=== PATIENT | female | born 1990 | race Two or more races ===

== ENCOUNTER → 2020-03-31 | Emergency (ER) | payer OTHER ==
[~2020-03-31] VITALS: Ht 172.7 cm; Wt 102.1 kg
[~2020-03-31] MED LIST: ALLEGRA; AMBIEN5 MG; AMITRIPTYLINE H75 MG; FIORICET TABLET1 TAB PO; PRENATABS FA T1 EACH; PROVENTIL; SYMBICORT 16010.2 GM; TOPAMAX50 MG PO
== END | disposition home or self-care (01) ==
LOC: ER 12:04
DX: O92.6 Galactorrhea (principal); O91.011 Infection of nipple associated with pregnancy, first trimester; B95.4 Other streptococcus as the cause of diseases classified elsewhere; B96.89 Other specified bacterial agents as the cause of diseases classified elsewhere; Z3A.12 12 weeks gestation of pregnancy

== ENCOUNTER → 2020-04-22 | Outpatient (CLI) | payer OTHER ==
[~2020-04-22] MED LIST changes: +KEFLEX500 MG PO; +MAXALT10 MG
== END | disposition home or self-care (01) ==
LOC: PRENATAL 15:23
PROVIDERS: ATTEND Obstetrics & Gynecology Maternal & Fetal Medicine
DX: O26.842 Uterine size-date discrepancy, second trimester (principal); O99.891 Other specified diseases and conditions complicating pregnancy; Z36.89 Encounter for other specified antenatal screening; Z3A.16 16 weeks gestation of pregnancy

== ENCOUNTER → 2020-04-23 | Emergency (ER) | payer OTHER ==
[~2020-04-23] VITALS: Ht 172.7 cm; Wt 102.5 kg
== END | disposition home or self-care (01) ==
LOC: ER 22:02
DX: O20.0 Threatened abortion (principal); O23.32 Infections of other parts of urinary tract in pregnancy, second trimester; Z3A.16 16 weeks gestation of pregnancy

== ENCOUNTER 2020-04-29 14:28 | Emergency (ER) | payer OTHER ==
[~2020-04-29] VITALS: Ht 172.7 cm; Wt 103.9 kg
== END 2020-04-29 18:46 | disposition home or self-care (01) ==
LOC: ER 14:28
DX: O26.852 Spotting complicating pregnancy, second trimester (principal); O36.80X0 Pregnancy with inconclusive fetal viability, not applicable or unspecified; Z3A.16 16 weeks gestation of pregnancy

== ENCOUNTER → 2020-05-27 | Outpatient (CLI) | payer OTHER | END | disposition home or self-care (01) | LOC: PRENATAL 13:00 | PROVIDERS: ATTEND Obstetrics & Gynecology Maternal & Fetal Medicine | DX: O35.0XX1 Maternal care for (suspected) central nervous system malformation in fetus, fetus 1 (principal); O35.3XX1 Maternal care for (suspected) damage to fetus from viral disease in mother, fetus 1; O98.512 Other viral diseases complicating pregnancy, second trimester; O99.891 Other specified diseases and conditions complicating pregnancy; Z36.89 Encounter for other specified antenatal screening; Z3A.21 21 weeks gestation of pregnancy ==

== ENCOUNTER 2020-07-15 13:17 | Outpatient (CLI) | payer OTHER | END 2020-07-15 19:07 | disposition home or self-care (01) | LOC: OBS/DEL 13:17 | PROVIDERS: ATTEND Obstetrics & Gynecology | DX: O26.843 Uterine size-date discrepancy, third trimester (principal); O26.893 Other specified pregnancy related conditions, third trimester; O26.853 Spotting complicating pregnancy, third trimester; R10.2 Pelvic and perineal pain ==

== ENCOUNTER → 2020-08-29 | Emergency (ER) | payer OTHER ==
[~2020-08-29] VITALS: Ht 172.7 cm; Wt 112.9 kg
[~2020-08-29] MED LIST changes: +PEPCID AC10 MG; +PRILOSEC OTC20 MG; +SINGULAIR5 MG
== END | disposition home or self-care (01) ==
LOC: ER 13:19 → CPU-OBS 15:13 → ER 15:13
DX: O26.893 Other specified pregnancy related conditions, third trimester (principal); R07.89 Other chest pain; Z3A.34 34 weeks gestation of pregnancy; Z03.818 Encounter for observation for suspected exposure to other biological agents ruled out

== ENCOUNTER 2020-10-02 06:50 | Inpatient (IN) | payer OTHER ==
[~2020-10-02] VITALS: Ht 172.7 cm; Wt 3.2 kg
[2020-10-03] MEDS ORDERED: AMITRIPTYLINE H75 MG (16:25)
[2020-10-03] MEDS ORDERED: MONTELUKAST SOD10 MG (16:26)
[2020-10-03] MEDS ORDERED: RIZATRIPTAN10 MG (16:26)
== END 2020-10-10 16:27 | disposition home or self-care (01) | DRG 787 ==
LOC: LDR 06:50 → OB/GYN 20:01
PROVIDERS: ADMIT Obstetrics & Gynecology; ATTEND Obstetrics & Gynecology
PROC: 3E033VJ Introduction of Other Hormone into Peripheral Vein, Percutaneous Approach (ICD-10-PCS; 2020-10-02)
PROC: 4A1HXFZ Monitoring of Products of Conception, Cardiac Rhythm, External Approach (ICD-10-PCS; 2020-10-02)
PROC: 10D00Z1 Extraction of Products of Conception, Low, Open Approach (ICD-10-PCS; principal; 2020-10-02 13:00)
PROC: B24BYZZ Ultrasonography of Heart with Aorta using Other Contrast (ICD-10-PCS; 2020-10-06)
DX: O62.1 Secondary uterine inertia (principal); O86.12 Endometritis following delivery; O86.20 Urinary tract infection following delivery, unspecified; Z16.12 Extended spectrum beta lactamase (ESBL) resistance; B96.20 Unspecified Escherichia coli [E. coli] as the cause of diseases classified elsewhere; R78.81 Bacteremia; O42.02 Full-term premature rupture of membranes, onset of labor within 24 hours of rupture; O99.824 Streptococcus B carrier state complicating childbirth; Z3A.39 39 weeks gestation of pregnancy; Z37.0 Single live birth; Z20.822 Contact with and (suspected) exposure to COVID-19

== ENCOUNTER 2021-02-08 11:24 | Outpatient (CLI) | payer OTHER ==
[~2021-02-08 11:24] MED LIST changes: +MONTELUKAST SOD10 MG; +RIZATRIPTAN10 MG
== END 2021-02-08 23:00 | disposition home or self-care (01) ==
LOC: LAB 11:24
DX: Z20.818 Contact with and (suspected) exposure to other bacterial communicable diseases (principal); Z20.828 Contact with and (suspected) exposure to other viral communicable diseases

== ENCOUNTER 2022-11-20 14:26 | Emergency (ER) | payer OTHER ==
[~2022-11-20] VITALS: Ht 170.2 cm; Wt 113.4 kg
[2022-11-20] MEDS ORDERED: PROAIR RESPICL90 MCG (15:31)
== END 2022-11-20 19:55 | disposition home or self-care (01) ==
LOC: ER 14:26
DX: O99.511 Diseases of the respiratory system complicating pregnancy, first trimester (principal); Z3A.08 8 weeks gestation of pregnancy; J45.909 Unspecified asthma, uncomplicated; Z20.822 Contact with and (suspected) exposure to COVID-19

== ENCOUNTER 2023-01-03 13:21 | Outpatient (CLI) | payer OTHER ==
[~2023-01-03 13:21] MED LIST changes: +PROAIR RESPICL90 MCG
== END 2023-01-03 16:45 | disposition home or self-care (01) ==
LOC: PRENATAL 13:21
PROVIDERS: ATTEND Obstetrics & Gynecology Maternal & Fetal Medicine
DX: O36.80X0 Pregnancy with inconclusive fetal viability, not applicable or unspecified (principal); Z36.9 Encounter for antenatal screening, unspecified; O34.219 Maternal care for unspecified type scar from previous cesarean delivery; O99.341 Other mental disorders complicating pregnancy, first trimester; Z3A.14 14 weeks gestation of pregnancy

== ENCOUNTER → 2023-01-23 | Emergency (ER) | payer OTHER ==
[~2023-01-23] VITALS: Ht 170.2 cm; Wt 108.4 kg
[~2023-01-23] MED LIST changes: +PRENA1 TRUE CO1 EACH PO
== END | disposition home or self-care (01) ==
LOC: ER 09:30
PROVIDERS: Emergency Medicine
DX: O26.891 Other specified pregnancy related conditions, first trimester (principal); Z3A.17 17 weeks gestation of pregnancy; R10.2 Pelvic and perineal pain; Z88.6 Allergy status to analgesic agent; Z91.013 Allergy to seafood; Z88.8 Allergy status to other drugs, medicaments and biological substances; Z91.018 Allergy to other foods

== ENCOUNTER 2023-02-15 13:00 | Outpatient (CLI) | payer OTHER | END 2023-02-15 15:00 | disposition home or self-care (01) | LOC: PRENATAL 13:00 | PROVIDERS: ATTEND Obstetrics & Gynecology Maternal & Fetal Medicine | DX: O35.9XX0 Maternal care for (suspected) fetal abnormality and damage, unspecified, not applicable or unspecified (principal); O35.3XX0 Maternal care for (suspected) damage to fetus from viral disease in mother, not applicable or unspecified; O44.00 Complete placenta previa NOS or without hemorrhage, unspecified trimester; O99.210 Obesity complicating pregnancy, unspecified trimester; O34.219 Maternal care for unspecified type scar from previous cesarean delivery; Z3A.20 20 weeks gestation of pregnancy ==

== ENCOUNTER 2023-03-15 18:02 | Outpatient (CLI) | payer OTHER ==
[2023-03-15 18:38] LABS: HEMATOCRIT 33.5 % (36.0-45.00); HEMOGLOBIN 11.5 g/dL (12.0-15.00); MEAN CELL VOLUME 92.9 fL (80.00-100.00); MEAN CORPUSCULAR HEMOGLOBIN 31.9 pg (27.00-32.0); MEAN CORPUSCULAR HGB CONC 34.3 g/dl (32.0-36.0); PH,URINE 6.5 (5.0-8.0); PLATELET COUNT 373 K/uL (150-450); RED CELL DISTRIBUTION WIDTH 13.8 % (11.5-14.5); URINE APPEARANCE Clear; URINE BILIRRUBIN Negative (NEGATIVE); URINE BLOOD Negative; URINE COLOR Yellow; URINE GLUCOSE Negative (NEGATIVE); URINE LEUKOCYTE Negative; URINE NITRATE Negative; URINE PROTEIN Negative (NEGATIVE)
[2023-03-15 18:39] LABS: URINE BACTERIA 2717.4 uL (0.0-1933); URINE EPITHELIAL CELLS 34.6 uL (0.0-38.8); URINE RBC 6.1 uL (0.0-20.8); URINE WBC 21.3 uL (0.0-23.2)
[2023-03-15 18:58] LABS: URINE CRYSTALS MANY /HPF
[2023-03-15 18:59] LABS: URINE YEAST NEGATIVE /hpf
== END 2023-03-16 14:31 | disposition home or self-care (01) ==
LOC: OBS/DEL 18:02
PROVIDERS: ATTEND Obstetrics & Gynecology
DX: O26.892 Other specified pregnancy related conditions, second trimester (principal); R10.2 Pelvic and perineal pain; M54.89 Other dorsalgia; Z3A.25 25 weeks gestation of pregnancy; Z88.6 Allergy status to analgesic agent; Z88.3 Allergy status to other anti-infective agents; Z91.013 Allergy to seafood; Z91.018 Allergy to other foods
CPT/HCPCS: 36415; 59025; 76815; 96365; 99283; J0690

== ENCOUNTER 2023-03-21 21:41 | Outpatient (CLI) | payer OTHER ==
[~2023-03-21] VITALS: Ht 170.2 cm; Wt 117.5 kg
[2023-03-21 23:55] LABS: URINE APPEARANCE Cloudy; URINE BILIRRUBIN Negative (NEGATIVE); URINE BLOOD Negative; URINE COLOR Yellow; URINE GLUCOSE Negative (NEGATIVE); URINE LEUKOCYTE Negative; URINE NITRATE Negative; URINE PROTEIN Trace (NEGATIVE)
[2023-03-21 23:59] LABS: URINE BACTERIA 905.7 uL (0.0-1933); URINE RBC 25.8 uL (0.0-20.8); URINE WBC 26.4 uL (0.0-23.2)
[2023-03-22 00:05] LABS: HEMATOCRIT 33.2 % (36.0-45.00); MEAN CELL VOLUME 93.8 fL (80.00-100.00); MEAN CORPUSCULAR HEMOGLOBIN 31.3 pg (27.00-32.0); MEAN CORPUSCULAR HGB CONC 33.3 g/dl (32.0-36.0); PLATELET COUNT 367 K/uL (150-450); RED BLOOD COUNT 3.54 M/uL (4.00-6.00); RED CELL DISTRIBUTION WIDTH 13.3 % (11.5-14.5)
[2023-03-22 00:09] LABS: HEMOGLOBIN 11.1 g/dL (12.0-15.00)
[2023-03-22 00:51] LABS: URINE CRYSTALS MODERATE /HPF
== END 2023-03-22 15:19 | disposition home or self-care (01) ==
LOC: OBS/DEL 21:41
PROVIDERS: ATTEND Obstetrics & Gynecology
DX: O26.892 Other specified pregnancy related conditions, second trimester (principal); O26.849 Uterine size-date discrepancy, unspecified trimester; O60.00 Preterm labor without delivery, unspecified trimester; O42.90 Premature rupture of membranes, unspecified as to length of time between rupture and onset of labor, unspecified weeks of gestation; Z3A.26 26 weeks gestation of pregnancy

== ENCOUNTER 2023-04-12 15:40 | Outpatient (CLI) | payer OTHER | END 2023-04-12 15:41 | disposition home or self-care (01) | LOC: PRENATAL 15:40 | PROVIDERS: ATTEND Obstetrics & Gynecology Maternal & Fetal Medicine | DX: O26.849 Uterine size-date discrepancy, unspecified trimester (principal); O34.219 Maternal care for unspecified type scar from previous cesarean delivery; O99.343 Other mental disorders complicating pregnancy, third trimester; O09.819 Supervision of pregnancy resulting from assisted reproductive technology, unspecified trimester; O99.210 Obesity complicating pregnancy, unspecified trimester; Z3A.28 28 weeks gestation of pregnancy ==

== ENCOUNTER 2023-05-05 11:03 | Outpatient (CLI) | payer OTHER ==
[2023-05-05 11:47] LABS: HEMATOCRIT 33.4 % (36.0-45.00); HEMOGLOBIN 11.5 g/dL (12.0-15.00); MEAN CELL VOLUME 93.2 fL (80.00-100.00); MEAN CORPUSCULAR HEMOGLOBIN 32.1 pg (27.00-32.0); MEAN CORPUSCULAR HGB CONC 34.5 g/dl (32.0-36.0); PLATELET COUNT 345 K/uL (150-450); RED BLOOD COUNT 3.58 M/uL (4.00-6.00)
[2023-05-05 12:53] LABS: PH,URINE 6.5 (5.0-8.0); URINE APPEARANCE Clear; URINE BILIRRUBIN Negative (NEGATIVE); URINE BLOOD Negative; URINE COLOR Yellow; URINE GLUCOSE Negative (NEGATIVE); URINE LEUKOCYTE Negative; URINE NITRATE Negative; URINE PROTEIN Trace (NEGATIVE)
[2023-05-05 12:55] LABS: URINE BACTERIA 1755.1 uL (0.0-1933); URINE EPITHELIAL CELLS 12.5 uL (0.0-38.8); URINE RBC 11.6 uL (0.0-20.8); URINE WBC 19.4 uL (0.0-23.2)
== END 2023-05-06 16:08 | disposition home or self-care (01) ==
LOC: OBS/DEL 11:03
PROVIDERS: ATTEND Obstetrics & Gynecology
DX: O36.8130 Decreased fetal movements, third trimester, not applicable or unspecified (principal); Z3A.32 32 weeks gestation of pregnancy; Z88.6 Allergy status to analgesic agent; Z88.3 Allergy status to other anti-infective agents; Z91.013 Allergy to seafood; Z91.018 Allergy to other foods

== ENCOUNTER 2023-05-24 15:49 | Outpatient (CLI) | payer OTHER | END 2023-05-24 15:53 | disposition home or self-care (01) | LOC: PRENATAL 15:49 | PROVIDERS: ATTEND Obstetrics & Gynecology Maternal & Fetal Medicine | DX: O26.849 Uterine size-date discrepancy, unspecified trimester (principal); O34.219 Maternal care for unspecified type scar from previous cesarean delivery; O09.819 Supervision of pregnancy resulting from assisted reproductive technology, unspecified trimester; O99.210 Obesity complicating pregnancy, unspecified trimester; Z3A.34 34 weeks gestation of pregnancy ==

== ENCOUNTER 2023-06-01 11:01 | Outpatient (CLI) | payer OTHER ==
[2023-06-01 13:00] LABS: HEMATOCRIT 34.3 % (36.0-45.00); HEMOGLOBIN 11.9 g/dL (12.0-15.00); MEAN CELL VOLUME 94.9 fL (80.00-100.00); MEAN CORPUSCULAR HEMOGLOBIN 32.9 pg (27.00-32.0); MEAN CORPUSCULAR HGB CONC 34.6 g/dl (32.0-36.0); PLATELET COUNT 331 K/uL (150-450); RED BLOOD COUNT 3.61 M/uL (4.00-6.00)
[2023-06-01 13:03] LABS: URINE APPEARANCE Clear; URINE BILIRRUBIN Negative (NEGATIVE); URINE COLOR Yellow; URINE GLUCOSE Negative (NEGATIVE); URINE LEUKOCYTE Negative; URINE NITRATE Negative; URINE PROTEIN Negative (NEGATIVE); URINE UROBILINOGEN 0.2 E.U./dl
[2023-06-01 13:08] LABS: URINE BACTERIA 1510.6 uL (0.0-1933); URINE EPITHELIAL CELLS 12.8 uL (0.0-38.8); URINE RBC 23.7 uL (0.0-20.8); URINE WBC 21.9 uL (0.0-23.2)
[2023-06-01 13:09] LABS: URINE BLOOD TRACES
[2023-06-01 13:22] LABS: CREATININE SERUM 0.66 mg/dL (0.55-1.02); GFR 102.52; POTASSIUM 4.09 mEq/L (3.5-5.1)
== END 2023-06-01 15:57 | disposition home or self-care (01) ==
LOC: OBS/DEL 11:01
PROVIDERS: ATTEND Obstetrics & Gynecology
DX: O26.893 Other specified pregnancy related conditions, third trimester (principal); O21.8 Other vomiting complicating pregnancy; Z3A.35 35 weeks gestation of pregnancy

== ENCOUNTER 2023-06-16 13:41 | Inpatient (IN) | payer OTHER ==
[~2023-06-16] VITALS: Ht 170.2 cm; Wt 126.6 kg
[2023-06-16 15:14] LABS: PH,URINE 6.5 (5.0-8.0); URINE APPEARANCE Clear; URINE BILIRRUBIN Negative (NEGATIVE); URINE BLOOD Moderate; URINE COLOR Yellow; URINE GLUCOSE Negative (NEGATIVE); URINE LEUKOCYTE Trace; URINE NITRATE Negative; URINE PROTEIN Trace (NEGATIVE)
[2023-06-16 15:18] LABS: URINE BACTERIA 3544.3 uL (0.0-1933); URINE EPITHELIAL CELLS 36.1 uL (0.0-38.8); URINE RBC 304.8 uL (0.0-20.8); URINE WBC 38.4 uL (0.0-23.2)
[2023-06-16 15:24] LABS: HEMATOCRIT 35.7 % (36.0-45.00); HEMOGLOBIN 12.2 g/dL (12.0-15.00); MEAN CELL VOLUME 94.4 fL (80.00-100.00); MEAN CORPUSCULAR HEMOGLOBIN 32.3 pg (27.00-32.0); MEAN CORPUSCULAR HGB CONC 34.2 g/dl (32.0-36.0); PLATELET COUNT 321 K/uL (150-450); RED BLOOD COUNT 3.78 M/uL (4.00-6.00); RED CELL DISTRIBUTION WIDTH 13.8 % (11.5-14.5)
[2023-06-16 15:42] LABS: INR 1.04; PARTIAL THROMBOPLASTIN TIME 29.2 SECONDS (22.0-34.0); PROTHROMBIN TIME 10.9 SECONDS (9.0-11.5)
[2023-06-16 15:46] LABS: ALBUMIN 2.6 gm/dL (3.4-5.0); BILIRUBIN TOTAL 0.17 mg/dL (0.3-1.2); CALCIUM 8.7 mg/dL (8.5-10.1); CREATININE SERUM 0.82 mg/dL (0.55-1.02); GFR 79.8; GLOBULINA 3.3 G/DL (2.4-3.5); POTASSIUM 4.34 mEq/L (3.5-5.1); TOTAL PROTEIN 5.9 gm/dL (6.4-8.2)
[2023-06-22] MEDS ORDERED: NEXIUM 24HR20 M1 PO (22:17)
[2023-06-22] MEDS ORDERED: ZYRTEC10 M3 PO (22:19)
[2023-06-22] MEDS ORDERED: SYMBICORT 16010.2 GM IH (22:22)
[2023-06-24 19:39] LABS: HEMATOCRIT 34.2 % (36.0-45.00); HEMOGLOBIN 11.6 g/dL (12.0-15.00); MEAN CELL VOLUME 95.2 fL (80.00-100.00); MEAN CORPUSCULAR HEMOGLOBIN 32.4 pg (27.00-32.0); PLATELET COUNT 325 K/uL (150-450); RED BLOOD COUNT 3.59 M/uL (4.00-6.00); RED CELL DISTRIBUTION WIDTH 13.8 % (11.5-14.5)
== END 2023-06-27 18:19 | disposition home or self-care (01) | DRG 788 ==
LOC: OB/GYN 06-24 05:15 → O/R 06-24 05:15 → SURG 06-24 13:39 → OB/GYN 06-24 16:20
PROVIDERS: ADMIT Obstetrics & Gynecology; ATTEND Obstetrics & Gynecology
PROC: 4A1HXCZ Monitoring of Products of Conception, Cardiac Rate, External Approach (ICD-10-PCS; 2023-06-24)
PROC: 10D00Z1 Extraction of Products of Conception, Low, Open Approach (ICD-10-PCS; principal; 2023-06-24 16:15)
DX: O34.211 Maternal care for low transverse scar from previous cesarean delivery (principal); Z3A.39 39 weeks gestation of pregnancy; Z37.0 Single live birth; Z20.822 Contact with and (suspected) exposure to COVID-19

== ENCOUNTER 2023-06-22 19:38 | Outpatient (CLI) | payer OTHER ==
[~2023-06-22] VITALS: Ht 170.2 cm; Wt 123.8 kg
[2023-06-22] MEDS ORDERED: RINGERS SOLUTION,LACTATED 1,000 ML IV SCH (20:15)
[2023-06-22 20:56] LABS: PH,URINE 6.5 (5.0-8.0); URINE APPEARANCE Clear; URINE BILIRRUBIN Negative (NEGATIVE); URINE BLOOD Negative; URINE COLOR Yellow; URINE GLUCOSE Negative (NEGATIVE); URINE LEUKOCYTE Negative; URINE NITRATE Negative; URINE PROTEIN Negative (NEGATIVE)
[2023-06-22 20:57] LABS: HEMATOCRIT 34.6 % (36.0-45.00); MEAN CORPUSCULAR HEMOGLOBIN 32.9 pg (27.00-32.0); MEAN CORPUSCULAR HGB CONC 34.7 g/dl (32.0-36.0); PLATELET COUNT 331 K/uL (150-450); RED BLOOD COUNT 3.64 M/uL (4.00-6.00); RED CELL DISTRIBUTION WIDTH 14.2 % (11.5-14.5)
[2023-06-22 21:00] LABS: URINE EPITHELIAL CELLS 14.3 uL (0.0-38.8); URINE RBC 4.1 uL (0.0-20.8); URINE WBC 57.3 uL (0.0-23.2)
[2023-06-22 21:19] LABS: URINE MUCUS MODERATE
[2023-06-22] MEDS ORDERED: NEXIUM 24HR20 M1 PO (22:17)
[2023-06-22] MEDS ORDERED: ZYRTEC10 M3 PO (22:19)
[2023-06-22] MEDS ORDERED: SYMBICORT 16010.2 GM IH (22:22)
== END 2023-06-23 10:32 | disposition home or self-care (01) ==
LOC: OBS/DEL 19:38
PROVIDERS: ATTEND Obstetrics & Gynecology
DX: O26.893 Other specified pregnancy related conditions, third trimester (principal); Z3A.38 38 weeks gestation of pregnancy; Z88.5 Allergy status to narcotic agent